=== PATIENT | male | born 1995 | race Two or more races ===

== ENCOUNTER 2019-12-17 17:34 | Emergency (ER) | payer MEDICAID, OTHER ==
[~2019-12-17] VITALS: Ht 185.4 cm; Wt 79.4 kg
[2019-12-17 18:01] VITALS: BP 142/84
== END 2019-12-17 18:09 | disposition home or self-care (01) ==
LOC: ER 17:34
DX: B37.0 Candidal stomatitis (principal); F41.9 Anxiety disorder, unspecified; F17.210 Nicotine dependence, cigarettes, uncomplicated; F12.10 Cannabis abuse, uncomplicated; Z88.5 Allergy status to narcotic agent